=== PATIENT | female | born 1975 | race Caucasian/White ===

== ENCOUNTER → 2016-06-04 | Outpatient (CLI) | payer BC | LOC: HEART 5 09:22 | DX: R60.9 Edema, unspecified (principal); R06.02 Shortness of breath; I27.2 Other secondary pulmonary hypertension; I08.1 Rheumatic disorders of both mitral and tricuspid valves ==

== ENCOUNTER → 2016-06-09 | Outpatient (CLI) | payer BC | LOC: HEART 5 13:19 | DX: R60.9 Edema, unspecified (principal) ==